=== PATIENT | male | born 1950 | race Caucasian/White ===

== ENCOUNTER 2016-12-16 08:59 | Emergency (ER) | payer MEDICARE, MEDICAID ==
[2016-12-16] MEDS ORDERED: BUMETANIDE1 MG PO (09:20)
[2016-12-16] MEDS ORDERED: COUMADIN1 MG PO (09:21)
[2016-12-16] MEDS ORDERED: PROPRANOLOL PO (09:22)
[2016-12-16] MEDS ORDERED: SPIRONOLACTONE25 MG PO (09:22)
[2016-12-16 10:24] LABS: HEMATOCRIT 25.4 % (39.0-50.0); HEMOGLOBIN 8.1 g/dl (14.0-18.0); IMMATURE GRANULOCYTES 0.8 % (0.0-1.0); MEAN CELL VOLUME 79.6 fL CALC (80.0-100.0); MEAN CORPUSCULAR HGB 25.4 pG CALC (26.0-32.0); MEAN CORPUSCULAR HGB CONC 31.9 g/L CALC (32.0-36.0); NEUT# 6.4 thou/uL (1.82-7.42); RED BLOOD COUNT 3.19 mill/uL (4.70-6.10); RED CELL DISTRI WIDTH 22.2 % (11.5-15.5)
[2016-12-16 10:30] LABS: INTERNATIONAL NORMALIZED RATIO 1.7 RATIO (0.7-1.3); PROTHROMBIN TIME 18.7 SECONDS (9.0-12.5)
[2016-12-16 10:35] LABS: CALCIUM 9.7 mg/dL (8.4-10.2); CREATININE 1.6 mg/dL (0.7-1.3); POTASSIUM 4.8 mmol/l (3.5-5.1)
[2016-12-16 13:31] VITALS: BP 136/65
== END 2016-12-16 13:31 | disposition short-term general hospital (02) ==
LOC: ED 08:59
PROVIDERS: Family Medicine
DX: R10.9 Unspecified abdominal pain (principal); R18.8 Other ascites; K86.1 Other chronic pancreatitis; K74.60 Unspecified cirrhosis of liver; B19.20 Unspecified viral hepatitis C without hepatic coma; I10 Essential (primary) hypertension; R53.1 Weakness

== ENCOUNTER 2016-12-25 16:38 | Inpatient (IN) | payer MEDICARE, MEDICAID ==
[~2016-12-25] VITALS: Ht 180.3 cm; Wt 62.6 kg
[~2016-12-25 16:38] MED LIST: BUMETANIDE2 MG PO; COUMADIN1 MG PO; PROPRANOLOL PO; SPIRONOLACTONE25 MG PO
--- NOTE | 2016-12-25 17:10 | NUR ---
ARRIVED ON UNIT DIRECT ADMIT FROM DR MARIN'S OFFICE, ALERT AND ORIENTED X 3, NO C/O PAIN AT THIS TIME, COLOR PALE AND ABD DISTENDED. SETTELED IN BED AND ORIENTED TO ROOM AND CALL DC. ATTEMPTS BY RN TO PLACE IV CATHETER UNSUCCESSFUL, CALENDER ROLL OPERATOR UNSUCCESSFUL IN OBTAINING BLOOD AFTER 2 ATTEMPTS ALSO, ARTERIAL BLOOD OBTAINED BY RESP. THERAPIST. TEST ENGINEERING MANAGER WILFRED CONTACTED AND ALSO MADE FUTILE ATTEMPTS IN TRYING TO PLACE IV CATHETER. CONDITION RELAYED TO HS NURSE AND WILL CONTINUE TO MONITOR.
[2016-12-25 17:16] VITALS: BP 106/57
[2016-12-25 19:00] VITALS: BP 104/55
[2016-12-25 19:01] LABS: HEMATOCRIT 29.3 % (39.0-50.0); HEMOGLOBIN 9.3 g/dl (14.0-18.0); IMMATURE GRANULOCYTES 0.4 % (0.0-1.0); MEAN CELL VOLUME 80.9 fL CALC (80.0-100.0); MEAN CORPUSCULAR HGB 25.7 pG CALC (26.0-32.0); MEAN CORPUSCULAR HGB CONC 31.7 g/L CALC (32.0-36.0); NEUT# 6.12 thou/uL (1.82-7.42); RED BLOOD COUNT 3.62 mill/uL (4.70-6.10); RED CELL DISTRI WIDTH 23.3 % (11.5-15.5)
[2016-12-25 19:12] LABS: ALBUMIN 2.8 g/dL (3.2-5.0); BILIRUBIN, TOTAL 2.6 mg/dL (0.0-1.4); CALCIUM 9.1 mg/dL (8.4-10.2); CREATININE 2.5 mg/dL (0.7-1.3); POTASSIUM 4.8 mmol/l (3.5-5.1); TOTAL PROTEIN 7.1 g/dL (6.3-8.2)
--- NOTE | 2016-12-25 19:48 | NUR ---
RECIEVED CALL FROM SARIKA IN THE LAB WITH CRITICAL [id number], CREAT-2.5, HGB IS 9.3.DR. MARIN CALLED WITH RESULTS. ORDERS RECIEVED-HOLD BLOOD TRANSFUSION TONIGHT. IVF ORDRED-NS @100CC/HR. WILL CONT TO MONITOR.
--- NOTE | 2016-12-25 20:00 | NUR ---
PATIENT RESTING IN BED AWAKE ALERT AND ORIENTEDX3. PATIENT IS PALE WITH SLIGHTLY YELLOW SCLERA. ABD IS DISTENDED BUT SOFT TO TOUCH. PATIENT STATES THAT HE HAS BM THIS AFTERNOON. STATES THAT HE RECENTLY HAD PARACENTESIS AT [facility]-HISTORY OF CIRRHOSIS AND ASCITES. IV SITE STARTED BY DOT [facility] DIRECTOR OCCUPATIONAL THERAPIST-#22 GAUGE TO RIGHT AC-IVF NS HUNG AND INFUSING AT 100CC/HR. O2 VIA NASAL CANNULA IN PLACE AT 3LPM. DOES NOT USE O2 AT HOME. INSTRUCTED ON USE OF NURSE CALL LIGHT SYSTEM AND TV REMOTE. SAFETY PRECAUTIONS REINFORCED WITH PATIENT. NO BLOOD TRANFUSION TONIGHT. CALL LIGHT IN REACH. WILL CONT TO MONITOR.
[2016-12-25 20:15] LABS: URINE BILIRUBIN - DIPSTICK NEGATIVE (NEGATIVE); URINE BLOOD DIPSTICK NEGATIVE (NEGATIVE); URINE COLOR YELLOW; URINE GLUCOSE - DIPSTICK NEGATIVE (NEGATIVE); URINE KETONE NEGATIVE (NEGATIVE); URINE LEUK ESTERASE NEGATIVE (NEGATIVE); URINE NITRITE - DIPSTICK NEGATIVE (Negative); URINE PH 5.5 (4.5-8.0); URINE PROTEIN - DIPSTICK NEGATIVE (NEG-TRACE); URINE SPECIFIC GRAVITY 1.015; URINE UROBILINOGEN - DIPSTICK 0.2 E.U./dL (0.2)
[2016-12-25 20:18] LABS: URINE CLARITY CLEAR
[2016-12-25 20:35] LABS: INTERNATIONAL NORMALIZED RATIO 1.5 RATIO (0.7-1.3)
[2016-12-26] VITALS (14 sets, daily range): BP systolic 95–125; BP diastolic 55–78
--- NOTE | 2016-12-26 00:43 | NUR ---
PATIENT RESTING IN BED AND APPEARS SLEEPING WITH O2 VIA NASAL CANNULA IN PLACE AND EYES CLOSED. IVF PATENT AND INFUSING VIA RIGHT AC SITE-SITE APPEARS HEALTHY AT THIS TIME. CALL LIGHT IN REACH. WILL CONT TO MONITOR.
--- NOTE | 2016-12-26 01:32 | NUR ---
PATIENT C/O RIGHT SIDED ABD PAIN-8/10 ON PAIN SCALE. MEDICATED WITH DILAUDID 1MG IVP ORDERED FOR PAIN. CALL LIGHT IN REACH. WILL CONT TO MONITOR.
[2016-12-26 06:05] LABS: HEMATOCRIT 22.9 % (39.0-50.0); HEMOGLOBIN 7.2 g/dl (14.0-18.0); IMMATURE GRANULOCYTES 0.7 % (0.0-1.0); MEAN CELL VOLUME 82.1 fL CALC (80.0-100.0); MEAN CORPUSCULAR HGB 25.8 pG CALC (26.0-32.0); MEAN CORPUSCULAR HGB CONC 31.4 g/L CALC (32.0-36.0); NEUT# 7.38 thou/uL (1.82-7.42); RED BLOOD COUNT 2.79 mill/uL (4.70-6.10)
[2016-12-26 06:23] LABS: ALBUMIN 2.8 g/dL (3.2-5.0); BILIRUBIN, TOTAL 3.3 mg/dL (0.0-1.4); CREATININE 2.3 mg/dL (0.7-1.3); POTASSIUM 4.8 mmol/l (3.5-5.1); TOTAL PROTEIN 6.9 g/dL (6.3-8.2)
--- NOTE | 2016-12-26 07:57 | NUR ---
ASSESSMENT IS COMPLETED: PT IS SITTING ON THE SIDE OF THE BED WITH NO DISTRESS NOTED. IV SITE IS FREE FROM REDNESS OR EDEMA. ABD IS DISTENDED. CONTINUE TO OSBERVE AND MONITOR.
--- NOTE | 2016-12-26 10:17 | NUR ---
PT RECEIVING 1ST UNIT OF BLOOD. INSTRUCTING PT RE: S/S TEMP, RASH, BP CHANGES, FEELING DIFFERENT . INSTRUCTIONS BEING GIVEN BY GILL MCKEON.
[2016-12-26] MEDS ORDERED: DICYCLOMINE HCL20 MG PO (11:30)
--- NOTE | 2016-12-26 11:31 | NUR ---
Visited pt rm for admission med rec. Talked to pt's daughter, caregiver, as pt did not recall his medications. Daughter gave me the names of pt's meds but was not sure of dose. Talked to Arya, pt's nurse, Arya showed a bag of pt's meds. Updated home med info accordingly. Of note, pt stated he has been taking 1/2 tab of ibuprofen 800mg every night for the last 5-7 days for abdominal pain. Pt stated no drug allergies nor food allergies. Pt did not have any other concerns or questions.
[2016-12-26] MEDS ORDERED: TUMS500 MG PO (11:37)
[2016-12-26] MEDS ORDERED: MOTRIN800 MG PO (11:44)
--- NOTE | 2016-12-26 12:00 | NUR ---
PT IS RELAXING IN BED WITH NO DISTRESS NOTED. IV SITE IS FREE FROM REDNESS OR EDEMA. CONTINUE TO OBSERVE AND MONITOR.
--- NOTE | 2016-12-26 13:37 | NUR ---
1ST UNIT COMPLETED AT 1305, THEN 2ND UNIT STARTED AT 1337 PT HAS AMBUALTED TO THE BATHROOM WITH FAMILY IN THE ROOM. IV SITE IS FREE FROM REDNESS OR EDEMA.
--- NOTE | 2016-12-26 16:00 | NUR ---
PT IS TOLERATING BLOOD TRANSFUSIONS WITH NO DISTRESS NOTED. IV SITE IS FREE FROM REDNESS OR EDEMA.
--- NOTE | 2016-12-26 17:19 | NUR ---
PT RECEIVEING 3RD UNIT OF BLOOD, TRANSFUISN. 2ND UNIT IS COMPLETED/ IV SITE IS FREE FROM REDNESS OR EDEMA. BLOOD TUBING HAS BEEN CHANGED PER PROTOCOL. CONTINUE TO OSBERVE AND MONITOR.
--- NOTE | 2016-12-26 18:29 | NUR ---
PT WAS GIVEN A SHOT FOR PAIN, TRIED TO EAT PEACHES AND BEGAN TO VOMIT.
--- NOTE | 2016-12-26 19:30 | NUR ---
PATIENT RESTING IN BED AT THIS TIME. 3RD UNIT OF PRBC'S INFUSING VIA RIGHT AC SITE. SITE APPEARS HEALTHY AT THIS TIME. REINFORCED TEACHING REGUARDING POSSIBLE ADVERSE REACTIONS. VERBALIZES UNDERSTANDING OF THE STATES. PATIENT DIDN'T EAT HIS DINNER -C/O NAUSEA. WILL CALL MD FOR ORDERS. ABD REMAINS DISTENDED, STATES THAT HE DID HAVE BM TODAY. SAFETY PRECAUTIONS REINFORCED. CALL LIGHT IN REACH. WILL CONT TO MONITOR.
--- NOTE | 2016-12-26 21:15 | NUR ---
3RD UNIT OF PRBC'S COMPLETED WITHOUT ANY ADVERSE REACTIONS. IVF NS INFUSING AT 100CC/HR ORDERED. CALL LIGHT IN REACH. WILL CONT TO MONITOR.
[2016-12-27 00:05] VITALS: BP 120/72
[2016-12-27 05:27] VITALS: BP 105/65
--- NOTE | 2016-12-27 06:07 | NUR ---
RESTING IN BED AT THIS TIME WITH NO COMPLAINTS AT THIS TIME. CALL LIGHT IN REACH. WILL CONT TO MONITOR
[2016-12-27 06:38] LABS: HEMATOCRIT 33.8 % (39.0-50.0); HEMOGLOBIN 10.9 g/dl (14.0-18.0); IMMATURE GRANULOCYTES 0.9 % (0.0-1.0); MEAN CELL VOLUME 83.7 fL CALC (80.0-100.0); MEAN CORPUSCULAR HGB CONC 32.2 g/L CALC (32.0-36.0); NEUT# 8.12 thou/uL (1.82-7.42); RED BLOOD COUNT 4.04 mill/uL (4.70-6.10); RED CELL DISTRI WIDTH 20.8 % (11.5-15.5)
[2016-12-27 06:47] LABS: ALBUMIN 2.8 g/dL (3.2-5.0); BILIRUBIN, TOTAL 8.8 mg/dL (0.0-1.4); CALCIUM 8.9 mg/dL (8.4-10.2); CREATININE 1.9 mg/dL (0.7-1.3); POTASSIUM 4.6 mmol/l (3.5-5.1)
[2016-12-27 08:10] VITALS: BP 107/63
--- NOTE | 2016-12-27 08:10 | NUR ---
ASSESSMENT IS COMPLETED: IV SITE IS FREE FROM REDNESS OR EDEMA. NO DISTRESS NOTED. ABD IS DISTENDED,. CONTINUE TO OBSERVE AND MONITOR.
--- NOTE | 2016-12-27 09:05 | NUR ---
IN TO VISIT WITH PT AND IS WANTING TO HAVE A PARACENTESIS PERFORMED. PT IS IN AGREEMENT. CONTINUE TO OSBERVE AND MONITOR. ALSO INFORMED STAFF "IF IV STOPS WORKING NO WORRIES, PT WILL HAVE TO DRINK MORE FLUIDS. "
--- NOTE | 2016-12-27 12:00 | NUR ---
PT IS RESTING IN BED WITH NO DISTRESS NOTED. IV SITE IS FREE FROM REDNESS OR EDEMA. CONTINUE TO OSBERVE AND MONITOR.
[2016-12-27 14:53] VITALS: BP 90/57
[2016-12-27 18:57] VITALS: BP 106/62
--- NOTE | 2016-12-27 20:00 | NUR ---
PT SITTING UP IN BED WATCHING TV. PT IS ALERT AND ORIENTED X3. PERRLA. LUNGS ARE CLEAR. RESP ARE EVEN AND UNLABORED. HR REGULAR. PULSES PALPABLE THROUGHOUT. NO EDEMA NOTED. BS ACTIVE. ABD FIRM AND DISTRENDED. #22 RAC. NS @100CC/HR INFUSING. NO REDNESS OR EDEMA NOTED AT SITE. WILL CONTINUE TO MONITOR/
--- NOTE | 2016-12-28 00:28 | NUR ---
PT RESTING IN BED WITH EYES CLOSED. RESP ARE EVEN AND UNLABORED. NO CHANGE IN PT STATUS. WILL CONTINUE TO MONITOR
--- NOTE | 2016-12-28 04:08 | NUR ---
PT RESTING IN BED WITH EYES CLOSED. AROUSES TO VERBAL STIMULI. RESP ARE EVEN AND UNLABORED. NO CHANGE IN PT STATUS. WILL CONTINUE TO MONITOR
[2016-12-28 05:16] VITALS: BP 108/62
[2016-12-28 05:51] LABS: HEMATOCRIT 30.7 % (39.0-50.0); HEMOGLOBIN 10.1 g/dl (14.0-18.0); IMMATURE GRANULOCYTES 0.8 % (0.0-1.0); MEAN CELL VOLUME 83.7 fL CALC (80.0-100.0); MEAN CORPUSCULAR HGB 27.5 pG CALC (26.0-32.0); MEAN CORPUSCULAR HGB CONC 32.9 g/L CALC (32.0-36.0); NEUT# 7.21 thou/uL (1.82-7.42); RED BLOOD COUNT 3.67 mill/uL (4.70-6.10); RED CELL DISTRI WIDTH 21.1 % (11.5-15.5)
[2016-12-28 06:14] LABS: ALBUMIN 2.6 g/dL (3.2-5.0); BILIRUBIN, TOTAL 4.7 mg/dL (0.0-1.4); CREATININE 1.8 mg/dL (0.7-1.3); POTASSIUM 4.6 mmol/l (3.5-5.1); TOTAL PROTEIN 6.7 g/dL (6.3-8.2)
--- NOTE | 2016-12-28 06:26 | NUR ---
DR MARIN NOTIFIED OF CRITICAL BUN 81. ALSO NOTIFIED ABOUT 7LB WEIGHT GAIN. ORDERS PLACED IN COMPUTER.
--- NOTE | 2016-12-28 07:00 | NUR ---
RECEIVED BEDSIDE REPORT FROM HOSSEIN MCKEON. RESTING IN BED WITH EYES CLOSED, AWAKENS EASILY. RESPS EVEN AND UNLABORED ON ROOM AIR. #22 RAC INFUSING WITHOUT DIFFICULTY, SITE APPEARS HEALTHY. VOICES NO NEEDS AT THIS TIME. PLAN OF CARE DISCUSSED. SAFETY PRECAUTIONS REINFORCED. BED IN LOWEST POSITION WITH WHEELS LOCKED. CALL LIGHT WITHIN REACH. WILL CONTINUE TO MONITOR.
[2016-12-28 07:08] LABS: INTERNATIONAL NORMALIZED RATIO 1.5 RATIO (0.7-1.3); PROTHROMBIN TIME 17.3 SECONDS (9.0-12.5)
[2016-12-28 08:23] VITALS: BP 119/69
--- NOTE | 2016-12-28 08:50 | NUR ---
TO ULTRASOUND IN STABLE CONDITION VIA WHEELCHAIR ACCOMPANIED BY VOLUNTEER.
--- NOTE | 2016-12-28 09:10 | NUR ---
FROM ULTRASOUND VIA WHEELCHAIR ACCOMPANIED BY VOLUNTEER. ASSISTED TO BATHROOM, MODERATE AMT OF SOFT BROWN STOOL INCONTINENCE. NATANAEL CARE PROVIDED.
--- NOTE | 2016-12-28 09:45 | NUR ---
TO ULTRASOUND IN STABLE CONDITION VIA WHEELCHAIR ACCOMPANIED BY VOLUNTEER.
--- NOTE | 2016-12-28 10:40 | NUR ---
FROM ULTRASOUND VIA WHEELCHAIR. DRESSING TO LEFT SIDE CDI. CALL LIGHT WITHIN REACH.
--- NOTE | 2016-12-28 12:30 | NUR ---
DR MARIN IN WITH PT, NEW ORDERS RECEIVED.
[2016-12-28 14:00] VITALS: BP 98/57
[2016-12-28 15:48] VITALS: BP 96/51
--- NOTE | 2016-12-28 16:00 | NUR ---
RESTING IN BED WITH EYES CLOSED. RESPS EVEN AND UNLABORED ON ROOM AIR. VOICES NO NEEDS AT THIS TIME. PO FLUIDS OFFERED. CALL LIGHT WITHIN REACH. WILL CONTINUE TO MONITOR.
--- NOTE | 2016-12-28 16:20 | NUR ---
Visited pt room for daily rounding. Pt stated that he is feeling better today and looking forward to going home tomorrow. Pt reported that he does not have any questions or concerns about hospital or home medications at this time. Upon reviwing home med list pt reported that he no longer takes the ibuprofen at all.
[2016-12-28 19:00] VITALS: BP 93/60
--- NOTE | 2016-12-28 21:10 | NUR ---
PT APPEARS TO BE SLEEPING IN SUPINE POSITION;WOKE PT TO COMPLETE ASSESSMENT;PT VOICES NO COMPLAINTS OR CONCERNS AT THIS TIME;#20G TO RAC;BS ACTIVE WITH DISTENDED/FIRM ABDOMEN;RESPIRATIONS EVEN AND UNLABORED ON RA,PRN O2 @ BEDSIDE HUM.;SAFETY PRECAUTIONS REINFORCED;PT EDUCATED TO CALL FOR ASSISTANCE IF NEEDED;CALL LIGHT IN REACH;WILL CONTINUE TO MONITOR
--- NOTE | 2016-12-29 01:00 | NUR ---
PT APPEARS TO BE SLEEPING IN SUPINE POSITION;RESPIRATIONS EVEN AND UNLABORED ON RA,HUM. O2 @ BEDSIDE;NO S/S OF DISTRESS NOTED;URINAL AT BEDSIDE;CALL LIGHT WITHIN REACH;WILL CONTINUE TO MONITOR
[2016-12-29 04:46] VITALS: BP 97/56
--- NOTE | 2016-12-29 05:00 | NUR ---
PT RESTING IN BED WIDE AWAKE,STATES "IM TIRED OF SLEEPING";RESPIRATIONS EVEN AND UNLABORED ON RA;PT VOICES NO COMPLAINTS OF PAIN OR NEEDS AT THIS TIME;FRESH COFFEE PROVIDED PER REQUEST;CALL LIGHT WITHIN REACH;WILL CONTINUE TO MONITOR
--- NOTE | 2016-12-29 07:00 | NUR ---
RECEIVED BEDSIDE REPORT FROM NATHAN DE LA CRUZ. RESTING IN BED WITH EYES CLOSED, AWAKENS EASILY. RESPS EVEN AND UNLABORED ON ROOM AIR. DENIES PAIN OR DISCOMFORT. PLAN OF CARE DISCUSSED. SAFETY PRECAUTIONS REINFORCED. BED IN LOWEST POSITION WITH WHEELS LOCKED. CALL LIGHT WITHIN REACH. ENCOURAGED PT TO CALL FOR ANY NEEDS.
[2016-12-29 07:40] VITALS: BP 106/64
--- NOTE | 2016-12-29 08:45 | NUR ---
DR MARIN IN WITH PT, NEW ORDERS RECEIVED.
[2016-12-29 09:40] LABS: HEMATOCRIT 32.5 % (39.0-50.0); HEMOGLOBIN 10.4 g/dl (14.0-18.0); IMMATURE GRANULOCYTES 0.7 % (0.0-1.0); MEAN CELL VOLUME 86.7 fL CALC (80.0-100.0); MEAN CORPUSCULAR HGB 27.7 pG CALC (26.0-32.0); NEUT# 6.67 thou/uL (1.82-7.42); RED BLOOD COUNT 3.75 mill/uL (4.70-6.10); RED CELL DISTRI WIDTH 21.9 % (11.5-15.5)
[2016-12-29 09:57] LABS: CALCIUM 8.9 mg/dL (8.4-10.2); CREATININE 1.7 mg/dL (0.7-1.3); POTASSIUM 4.2 mmol/l (3.5-5.1)
--- NOTE | 2016-12-29 11:10 | NUR ---
PHONE CALL FROM DR MARIN, NEW ORDERS RECEIVED.
[2016-12-29 14:05] VITALS: BP 107/70
--- NOTE | 2016-12-29 15:21 | NUR ---
Discharge instructions given. Patient verbalizes understanding of same. Discharged in stable condition via Wheelchair to Home with family. All belongings sent with pt.
== END 2016-12-29 15:16 | disposition home or self-care (01) | DRG 434 ==
LOC: MS2 16:38
PROVIDERS: ADMIT Internal Medicine Geriatric Medicine; ATTEND Internal Medicine Geriatric Medicine
PROC: 30233N1 Transfusion of Nonautologous Red Blood Cells into Peripheral Vein, Percutaneous Approach (ICD-10-PCS; principal; 2016-12-26)
PROC: 30233N1 Transfusion of Nonautologous Red Blood Cells into Peripheral Vein, Percutaneous Approach (ICD-10-PCS; 2016-12-26)
PROC: 30233N1 Transfusion of Nonautologous Red Blood Cells into Peripheral Vein, Percutaneous Approach (ICD-10-PCS; 2016-12-26)
PROC: 0W9G3ZX Drainage of Peritoneal Cavity, Percutaneous Approach, Diagnostic (ICD-10-PCS; 2016-12-28)
DX: K70.31 Alcoholic cirrhosis of liver with ascites (principal); J44.9 Chronic obstructive pulmonary disease, unspecified; D64.9 Anemia, unspecified; R62.7 Adult failure to thrive; B19.20 Unspecified viral hepatitis C without hepatic coma; K21.9 Gastro-esophageal reflux disease without esophagitis; K29.70 Gastritis, unspecified, without bleeding; K27.9 Peptic ulcer, site unspecified, unspecified as acute or chronic, without hemorrhage or perforation
CPT/HCPCS: P9016

== ENCOUNTER 2017-01-08 09:30 | Inpatient (IN) | payer MEDICARE, MEDICAID ==
[2017-01-08] VITALS (7 sets, daily range): BP systolic 84–120; BP diastolic 49–63
[~2017-01-08] VITALS: Ht 180.3 cm; Wt 64.0 kg
[~2017-01-08 09:30] MED LIST changes: +DICYCLOMINE HCL20 MG PO; +MOTRIN800 MG PO; +TUMS500 MG PO
--- NOTE | 2017-01-08 09:40 | NUR ---
DIRECT ADMIT VIA WHEELCHAIR ACCOMPANIED BY DAUGHTER. AMBULATED TO BED WITH UNSTEADY GAIT. RESPS EVEN AND UNLABORED ON ROOM AIR. ORIENTED TO ROOM AND CALL SYSTEM. SAFETY PRECAUTIONS REINFORCED. BED IN LOWEST POSITION WITH WHEELS LOCKED. CALL LIGHT WITHIN REACH. ENCOURAGED PT TO CALL FOR ANY NEEDS.
[2017-01-08 10:48] LABS: HEMATOCRIT 23.4 % (39.0-50.0); HEMOGLOBIN 7.6 g/dl (14.0-18.0); IMMATURE GRANULOCYTES 1.1 % (0.0-1.0); MEAN CELL VOLUME 91.1 fL CALC (80.0-100.0); MEAN CORPUSCULAR HGB 29.6 pG CALC (26.0-32.0); MEAN CORPUSCULAR HGB CONC 32.5 g/L CALC (32.0-36.0); NEUT# 9.53 thou/uL (1.82-7.42); RED BLOOD COUNT 2.57 mill/uL (4.70-6.10); RED CELL DISTRI WIDTH 25.5 % (11.5-15.5)
[2017-01-08 11:11] LABS: ACT PARTIAL THROMBO TIME 29.4 SECONDS (20.0-32.5); INTERNATIONAL NORMALIZED RATIO 1.2 RATIO (0.7-1.3); PROTHROMBIN TIME 13.4 SECONDS (9.0-12.5)
[2017-01-08 11:12] LABS: CALCIUM 9.2 mg/dL (8.4-10.2); CREATININE 3.4 mg/dL (0.7-1.3)
[2017-01-08 11:23] LABS: POTASSIUM 5.4 mmol/l (3.5-5.1)
--- NOTE | 2017-01-08 11:30 | NUR ---
PHONE CALL FROM DR MARIN, NEW ORDERS RECEIVED.
--- NOTE | 2017-01-08 11:40 | NUR ---
MEDICATED WITH ZOFRAN 4MG IVP FOR C/O NAUSEA.
--- NOTE | 2017-01-08 12:30 | NUR ---
TO RADIOLOGY IN STABLE CONDITION VIA WHEELCHAIR ACCOMPANIED BY VOLUNTEER.
--- NOTE | 2017-01-08 13:00 | NUR ---
RETURNED FROM RADIOLOGY VIA WHEELCHAIR. AMBULATED TO BED WITH UNSTEADY GAIT. SINGLE LUMEN PICC TO [facility], SITE APPEARS HEALTHY. PO FLUIDS OFFERED. CALL LIGHT WITHIN REACH. ENCOURAGED PT TO CALL FOR ANY NEEDS.
[2017-01-08] MEDS ORDERED: MULTIVITAMI1 PO (15:59)
[2017-01-08] MEDS ORDERED: NORCO1 TA1 PO (16:00)
[2017-01-08] MEDS ORDERED: BUMETANIDE2 MG PO (16:02)
[2017-01-08] MEDS ORDERED: ONDANSETRON4 MG PO (16:02)
--- NOTE | 2017-01-08 18:00 | NUR ---
DR MARIN IN WITH PT, NEW ORDERS RECEIVED.
--- NOTE | 2017-01-08 19:00 | NUR ---
REPORT RECIEVED FROM LINDA DEWITT. PT ASLEEP ON ENTRY. NO ACUTE SIGNS OF DISTRESS NOTED. RESP EVEN AND UNLABORED. PICC PATENT. SAFETY PRECAUTIONS IN PLACE. CALL LIGHT WITHIN REACH. WILL CONTINUE TO MONITOR.
--- NOTE | 2017-01-08 23:07 | NUR ---
PT VOMITED MODERATED AMOUNT OF LIGHT BROWN EMESIS. PT STATES "HE DRANK HIS CHOCOLATE SHAKE, THIS IS NOT NEW" AND HAS RECIEVED ZOFRAN SINCE ADMISSION. ADMINISTERED ZOFRAN AND SCHEDULED PROTONIX BETWEEN UNITS OF BLOOD. WITH GOOD EFFECT, NO FURTHER EMESIS. WILL CONTINUE TO MONITOR.
[2017-01-09] VITALS (15 sets, daily range): BP systolic 91–148; BP diastolic 53–99
--- NOTE | 2017-01-09 00:50 | NUR ---
PT HAS SECOND UNIT OF BLOOD TRANSFUSING. PT TOLERATING BLOOD WELL. VITAL SIGNS CLOSELY MONITORED. NO COMPLAINTS OF PAIN FROM PT. PICC PATENT. WILL CONTINUE TO MONITOR. CALL LIGHT WITHIN REACH.
[2017-01-09 02:11] LABS: URINE BILIRUBIN - DIPSTICK NEGATIVE (NEGATIVE); URINE BLOOD DIPSTICK MODERATE (NEGATIVE); URINE COLOR YELLOW; URINE GLUCOSE - DIPSTICK NEGATIVE (NEGATIVE); URINE KETONE NEGATIVE (NEGATIVE); URINE LEUK ESTERASE NEGATIVE (NEGATIVE); URINE NITRITE - DIPSTICK NEGATIVE (Negative); URINE PH 5.5 (4.5-8.0); URINE PROTEIN - DIPSTICK NEGATIVE (NEG-TRACE); URINE UROBILINOGEN - DIPSTICK 0.2 E.U./dL (0.2)
[2017-01-09 02:12] LABS: URINE CLARITY CLEAR
[2017-01-09 02:22] LABS: URINE BACTERIA FEW hpf; URINE SQUAMOUS EPITHELIAL CELL FEW EPI/hpf (0-FEW)
--- NOTE | 2017-01-09 05:15 | NUR ---
PT ASSISTED TO BATHROOM. PT HAS NO COMPLAINT OF PAIN AT THIS TIME. PT DAILY WT IS 64.2KG. PT ASSISTED BACK TO BED. PICC PATENT. SAFETY PRECAUTIONS REINFORCED. WILL CONTINUE TO MONITOR.
[2017-01-09 06:28] LABS: HEMOGLOBIN 8.7 g/dl (14.0-18.0); IMMATURE GRANULOCYTES 1.2 % (0.0-1.0); MEAN CELL VOLUME 88.1 fL CALC (80.0-100.0); MEAN CORPUSCULAR HGB 29.5 pG CALC (26.0-32.0); MEAN CORPUSCULAR HGB CONC 33.5 g/L CALC (32.0-36.0); NEUT# 8.42 thou/uL (1.82-7.42); RED BLOOD COUNT 2.95 mill/uL (4.70-6.10); RED CELL DISTRI WIDTH 22.1 % (11.5-15.5)
[2017-01-09 06:47] LABS: ALBUMIN 2.5 g/dL (3.2-5.0); BILIRUBIN, TOTAL 5.9 mg/dL (0.0-1.4); CALCIUM 8.8 mg/dL (8.4-10.2); CREATININE 3.4 mg/dL (0.7-1.3); TOTAL PROTEIN 6.2 g/dL (6.3-8.2)
[2017-01-09 06:57] LABS: POTASSIUM 5.4 mmol/l (3.5-5.1)
--- NOTE | 2017-01-09 07:00 | NUR ---
CRITICAL LAB CALLED FOR ELEVATED BUN/CR. DR. MARIN AWARE OF LAB TRENDING DOWN. TREATMENT IN PLACE.
--- NOTE | 2017-01-09 07:55 | NUR ---
SHIFT CHANGE REPORT FROM CARLOS, PT SLEEPING BUT AROUSES TO VERBAL STIMULI, DISORIENTED AT THIS TIME, STATED BIRTHDAY BUT REPEATED BOD WHEN ASKED FEW TIMES WHAT TODAY'S DATE WAS. ORIENTED TO TIME AND DATE AND SET UP FOR MEAL. CALL DC IN REACH.
--- NOTE | 2017-01-09 12:02 | NUR ---
@ 0815 PT WAS ASSISTED TO BR AND ADVISED TO USE CALL DC WHEN FINISHED, PT DID NOT CALL BUT GOT OUT BY SELF AND PLUGGED IN IV CORD TO WALL THEN PROCEEDED TO GO BACK TO BR, SLOSED DOOR ON IV CORD AHICH BROKE OFF. HOUSE KEEPING STAFF DISCOVERED ACTION AND REPORTED, RN JUST N TIME TO PREVENT BLEEEDING FROM PICC LINE. PT IS CONFUSED, DR MARIN NOTIFIED AND WROTE ORDERS, AMMINIL LEVELS ELEVATED. BED ALARM PLACED AND CALL DC IN REACH.
--- NOTE | 2017-01-09 12:06 | NUR ---
PT ATTEMPTING TO GET OOB AT THIS TIME, PRBC JUST STARTED, PT ASSISTED TO RECLINER. STILL CONFUSED AND DISORIENTED, SET UP FOR MEAL. BODY ALARM PLACED, WILL CONTINUE TO MONITOR
--- NOTE | 2017-01-09 13:53 | NUR ---
DR MARIN NOTIFIED OF AMMONIA LEVEL, NO NEW ORDERS.
--- NOTE | 2017-01-09 15:36 | NUR ---
FIRST UNIT PRBC INFUSED WITHOUT ADVERSE REACTION. PT HAS BEEN RESTLESS ALL DAY BUT STATES HE HAS NOT PAIN, VOMITTING UNDIGESTED CHOCOLATE ENSURE AT THIS TIME. UNIT # 2 JUST STARTED, WILL CONTINUE TO MONITOR.
--- NOTE | 2017-01-09 18:03 | NUR ---
DR MARIN SPOKE WITH PT'S DAUGHTER AND HAVE DECIDED TO CHANGE CODE STATUS PER PTS WISHES.
--- NOTE | 2017-01-09 19:20 | NUR ---
REPORT RECIEVED FROM LINDA CERON. PT APPEARS TO BE SLEEPING WITH EYES CLOSED. NO ACUTE SIGNS OF DISTRESS NOTED. RESP EVEN AND UNLABORED. PICC PATENT. SAFETY PRECAUTIONS IN PLACE. CALL LIGHT WITHIN REACH. WILL CONTINUE TO MONITOR.
--- NOTE | 2017-01-09 19:47 | NUR ---
SPOKE TO DAUGHTER YAMEL WHO REPORTED PT MADE WISHES KNOWN TO HER THAT HE DOES NOT WANT TO BE RESUSSITATED IF HE SHOULD EVER BE IN THE SITUATION THAT REQUIRES IT, VERBAL CONSENT GIVEN VIA TELEPHONE FOR DNR.
--- NOTE | 2017-01-09 20:10 | NUR ---
BED ALARM WENT OFF. PT UP TO THE SIDE OF THE BED VOIDING AND DEFICATING. PT WAS ENCOURGED TO SIT ON BSC, WOULD NOT FOLLOW COMMANDS. PT LAYED BACK DOWN IN BED. WHEN ASKED QUESTIONS, WOULD NOT RESPOND. @2019 INQUIRED THE WORLD RENOWNED CHEF AND RESTAURANT OWNER TO CHECK ON PT REGUARDING LACK OF RESPONSE. RECCOMENDED TO CALL PHYSICAN.
--- NOTE | 2017-01-09 20:34 | NUR ---
DR MARIN CALLED IN REGUARD TO CHANGE IN PT CONDITON. NEW ORDERS RECIEVED.
--- NOTE | 2017-01-09 22:30 | NUR ---
PT APPEARS TO BE SLEEPING AT THIS TIME. PICC PATENT. CALL LIGHT WITHIN REACH.
--- NOTE | 2017-01-10 00:58 | NUR ---
PT IS RESTING WITH EYES CLOSED. NO CHANGES IN THIS TIME. BED ALARM ON. CALL LIGHT WITHIN REACH.
[2017-01-10 03:20] VITALS: BP 147/90
--- NOTE | 2017-01-10 04:31 | NUR ---
PT APPEARS TO BE SLEEPING AT THIS TIME. RESP EVEN AND UNLABORED. PICC PATENT. WILL CONTINUE TO MONITOR
--- NOTE | 2017-01-10 05:15 | NUR ---
BLOOD DRAW FROM PICC.PICC FLUSHED PER PROTOCOL.
[2017-01-10 05:59] LABS: HEMOGLOBIN 11.6 g/dl (14.0-18.0); IMMATURE GRANULOCYTES 1.4 % (0.0-1.0); MEAN CELL VOLUME 86.4 fL CALC (80.0-100.0); MEAN CORPUSCULAR HGB 30.4 pG CALC (26.0-32.0); MEAN CORPUSCULAR HGB CONC 35.2 g/L CALC (32.0-36.0); NEUT# 8.04 thou/uL (1.82-7.42); RED BLOOD COUNT 3.82 mill/uL (4.70-6.10); RED CELL DISTRI WIDTH 20.3 % (11.5-15.5)
[2017-01-10 06:18] LABS: ALBUMIN 2.6 g/dL (3.2-5.0); BILIRUBIN, TOTAL 9.9 mg/dL (0.0-1.4); CREATININE 3.3 mg/dL (0.7-1.3); POTASSIUM 4.7 mmol/l (3.5-5.1); TOTAL PROTEIN 6.5 g/dL (6.3-8.2)
--- NOTE | 2017-01-10 06:36 | NUR ---
SHLOMO, FROM LAB CALLED. BUN;119. CREATNINE; 3.3. DR. MARIN ALREADY AWARE LABS ARE TRENDING DOWN.
--- NOTE | 2017-01-10 07:34 | NUR ---
SHIFT CHANGE REPORT FROM JOHN, PT AWAKE, CONFUSED, DISORIENTED AND RESTLESS, ASSISTED TO BSC BY 3 STAFF MEMBERS, HAD BLADDER & BOWEL ELIMINATION AND ASSISTED BACK TO BED, RESTLESSNES SUBSIDES AT THIS TIME WILL CONTINUE TO MONITOR.
--- NOTE | 2017-01-10 09:59 | NUR ---
RESTING CALMLY AND COMFORTABLY AT THIS TIME, BODY ALARM IN PLACE, CALL DC IN REACH, DAUGHTER AT BEDSIDE.
--- NOTE | 2017-01-10 10:53 | NUR ---
PT HAS MUCH DIFFICULTY FOLLOWING COMMANDS, ASSISTED TO STRETCHER AND TRANSPORTED OFF UNIT FOR PROCEDURE AT THIS TIME.
--- NOTE | 2017-01-10 10:59 | NUR ---
JASMIN FROM RADIOLOGY JUST CALLED STATING UNABLE TO DO PROCEDURE DUE TO PT'S MENTATION AND ELEVATED AMMONIA LEVELS, PT RETURNED TO UNIT, DR MARIN NOTIFIED AND GAVE ORDERS.
[2017-01-10 12:06] VITALS: BP 158/88
--- NOTE | 2017-01-10 12:30 | NUR ---
RADIOLOGY NOTIFIED (JASMIN) OF NEW ORDERS AND REPORTED CONSENT MAY BE OBTAINED BY AUTHORISED FAMILY MEMBER. PT'S DAUGHTER & POA ARRIVED, INFORMED OF ORDERS AND PROTOCOL AND NOW WENT WITH PT OFF UNIT SIGN CONSENT FOR EXECUTION OF PROCEDURE.
[2017-01-10 15:30] VITALS: BP 152/83
--- NOTE | 2017-01-10 16:00 | NUR ---
PT RETURNED TO UNIT AND ASSISTED WITH TRANSFER TO BED, ABDOMEN MUCH LESS DISTENDED AND SOFT, DENIES PAIN, RESTLESNESS REDUCED, RESTING N BED WITH BODY ALARM IN PLACE AND CALL DC IN REACH.
--- NOTE | 2017-01-10 19:00 | NUR ---
BEDSIDE REPORT RECEIVED FROM LINDA CERON. PT ALERT WITH SOME CONFUSION. RESTING IN BED LEFT SIDE WITH COVERS OVER HEAD. DENIES PAIN, HOWEVER, GROANS WITH MOVEMENT. OFFERED TYLENOL AND PT STATED THAT HE WOULD LIKE SOMETHING FOR PAIN. RESPIRATIONS EVEN AND UNLABROED. IV FLUIDS INFUSING WITHOUT DIFFICUTLY TO FRANK PICC. PICC DRESSING CDI. SAFETY MEASURES IN PLACE INCLUDING BED ALARM. CALL LIGHT WITHIN REACH.
[2017-01-10 19:15] VITALS: BP 134/80
--- NOTE | 2017-01-11 00:22 | NUR ---
PT RESTING IN BED WITH EYES CLOSED ON LEFT SIDE. PT GROANS FREQUENTLY; DAY SHIFT ALSO REPORTED PERSISTENT MOANING. TYLENOL AND ATIVAN GIVEN WITH HS MEDS. DURING MED PASS PT NOTED TO HAVE STOOL ON HANDS AND CONFUSED. BED BATH GIVEN AT THIS TIME. PT REMAINS JAUNDICE AND ABDOMEN DISTENTED AND FIRM, HOWEVER, IMPROVED FROM BEFORE PARACENTESIS. BED ALARM REMAINS IN PLACE AND CLOSE MONITORING.
--- NOTE | 2017-01-11 04:17 | NUR ---
PT REMAINS CONFUSED. INCONTINENT OF BOWEL MOVEMENT AND FECES FOUND ON HANDS, PILLOW, AND SHEETS. BED BATH GIVEN. PICC LINE PATENT WITH GOOD BLOOD RETURN. IV FLUIDS INFUSING WITHOUT DIFFICUTLY. SAFETY MEASURES REMAIN IN PLACE INCLUDING BED ALARM. PT'S NEEDS ARE ANTICIPATED BY STAFF. CALL LIGHT WITHIN REACH.
[2017-01-11 04:20] VITALS: BP 137/82
[2017-01-11 06:16] LABS: HEMATOCRIT 32.9 % (39.0-50.0); HEMOGLOBIN 11.2 g/dl (14.0-18.0); IMMATURE GRANULOCYTES 0.8 % (0.0-1.0); MEAN CELL VOLUME 88.2 fL CALC (80.0-100.0); NEUT# 9.6 thou/uL (1.82-7.42); RED BLOOD COUNT 3.73 mill/uL (4.70-6.10)
[2017-01-11 06:36] LABS: ALBUMIN 2.6 g/dL (3.2-5.0); BILIRUBIN, TOTAL 9.8 mg/dL (0.0-1.4); CALCIUM 8.8 mg/dL (8.4-10.2); CREATININE 3.2 mg/dL (0.7-1.3); POTASSIUM 4.8 mmol/l (3.5-5.1); TOTAL PROTEIN 6.5 g/dL (6.3-8.2)
[2017-01-11 07:50] VITALS: BP 126/84
--- NOTE | 2017-01-11 12:30 | NUR ---
BLADDER SCAN ORDERED BY , PT.SCANNED @>999. WAS NOTIFIED AND A INDWELLING MANTILLA CATHETER WAS ORDERED. UNABLE TO INSERT CATHETER, 2X ATTEMPTS. NOTIFIED AND A CAUD'E CATHETER WAS ORDERED.
--- NOTE | 2017-01-11 13:30 | NUR ---
CAUD'E CATHETER INSERTED, NOT MUCH OUTPUT. NOTIFIED LA,SUPERINTENDENT ELECTRIC POWER AND MECCA ELLIS REGARDING LIMITED OUTPUT, RHONDA ORDERED IRRIGATION SALINE. CATHETER WAS IRRIGATED AND APPEARS PATENT. OUTPUT IS LIMITED TO A VERY SLOW TRICKLE. CATHETER IS ATTACHED TO A LEG STRAP, PT.TOLERATED PROCEDURE WELL. DAUGHTER IS NO LONGER AT BEDSIDE. BED ALARM IS ON AND CALL LIGHT IS AT SIDE
[2017-01-11 14:52] LABS: INTERNATIONAL NORMALIZED RATIO 1.3 RATIO (0.7-1.3)
[2017-01-11 15:19] VITALS: BP 138/82
--- NOTE | 2017-01-11 18:15 | NUR ---
PT.MEDICATED W/LACTULOSE FOR ELEVATED AMONIA LEVELS ORDERED. PT.HAS BEEN GETTING UP TO BEDSIDE COMMODE APPROX.Q20 MINUTES IN ATTEMPTS TO USE THE RESTROOM. SMALL SPOTTED DARK BM'S, MANTILLA CATHETER IS IN PLACE AND DRAINING ORANGE URINE MINIMALLY. BED ALARM IS ON PT.
--- NOTE | 2017-01-11 18:45 | NUR ---
CALLED INTO ROOM B Y PREVIOUS SHIFT NURSE BRENDEN MCKEON. PT CONFUSED. PT HAS BROKE PICC LINE AT TIP OF CATH. PT BLEEDING OUT OF PICC LINE. PICC LINE NOT SALVAGABLE. PICC CLAMPED TO PREVENT FURTHER BLEEDING. NOTIFIED DR GENTILE. ORDERS RECEIVED TO DC PICC. PICC LINE DC'D.PRESSURE APPLIED WITH GAUZE AND COVERED WITH AN OCCLUSIVE DRESSING. PRESSURE HELD FOR 2 MINUTES. NO BLEEDING NOTED ON DRESSING.
[2017-01-11 18:53] VITALS: BP 114/73
--- NOTE | 2017-01-11 19:30 | NUR ---
ALICE MCKEON STARTED #22 RIGHT HAND X [address] GENTILE NOTIFED. ORDERS OBTAINED FOR [facility] FLUIDS.
--- NOTE | 2017-01-11 20:00 | NUR ---
PT AGITATED AND UP AND DOWN TO BSC. SITTER IN ROOM
--- NOTE | 2017-01-11 20:00 | NUR ---
PT SITTING UP IN BED WATCHING TV. PT IS ALERT AND ORIENTED TO NAME. PERRLA. RESP ARE EVEN AND UNLABORED. LUNGS ARE CLEAR. HR REGULAR. PULSES PALPABLE THROUGHOUT. NO EDEMA NOTED. ABD FIRM AND DISTENDED. MANTILLA DRAINING BLOOD TINGED URINE. DRESSING TO FRANK FROM PREVIOUS PICC IS C/D/I. #22 RIGHT HAND. NO REDNESS OR EDEMA NOTED AT SITE. SITTER IN ROOM. WILL CONTINUE TO MONITOR
--- NOTE | 2017-01-11 21:30 | NUR ---
IVF STARTED AT [facility] PER MD ORDERS. PT CONTINUES TO SEEM AGITATED AND BE UP AND DOWN TO BSC. PT STATED HE WAS IN PAIN. PAIN MEDICATION GIVEN PER MD ORDERS. SITTER IN ROOM WILL CONTINUE TO MONITOR
--- NOTE | 2017-01-11 22:30 | NUR ---
PT RESTING IN BED WITH EYES CLOSED. RESP ARE EVEN AND UNLABORED. MANTILLA DRAINING BLOOD TINGED URINE. NO DISTRESS NOTED. SITTER IN ROOM WILL CONTINUE TO MONITOR
--- NOTE | 2017-01-12 00:13 | NUR ---
PT RESTING IN BED WITH EYES CLOSED. RESP ARE EVEN AND UNLABORED. SITTER IN ROOM. WILL CONTINUE TO MONITOR
--- NOTE | 2017-01-12 04:00 | NUR ---
PT RESTING IN BED WITH EYES CLOSED. RESP ARE EVEN AND UNLABORED. NO DISTRESS NOTED. MANTILLA DRAINING BLOOD TINGED URINE. 40 CC TOTAL OUTPUT IN 12 HOURS. MD AWARE OF THIS TREND. IVF INFUSING @[facility]. WILL CONTINUE TO MONITOR
[2017-01-12 04:39] VITALS: BP 98/67
[2017-01-12 06:13] LABS: HEMATOCRIT 32.5 % (39.0-50.0); HEMOGLOBIN 11.1 g/dl (14.0-18.0); IMMATURE GRANULOCYTES 1.1 % (0.0-1.0); MEAN CELL VOLUME 88.8 fL CALC (80.0-100.0); MEAN CORPUSCULAR HGB 30.3 pG CALC (26.0-32.0); MEAN CORPUSCULAR HGB CONC 34.2 g/L CALC (32.0-36.0); NEUT# 11.65 thou/uL (1.82-7.42); RED BLOOD COUNT 3.66 mill/uL (4.70-6.10); RED CELL DISTRI WIDTH 20.5 % (11.5-15.5)
[2017-01-12 06:28] LABS: ALBUMIN 2.5 g/dL (3.2-5.0); BILIRUBIN, TOTAL 9.9 mg/dL (0.0-1.4); CALCIUM 9.2 mg/dL (8.4-10.2); CREATININE 3.7 mg/dL (0.7-1.3); POTASSIUM 5.1 mmol/l (3.5-5.1); TOTAL PROTEIN 6.5 g/dL (6.3-8.2)
--- NOTE | 2017-01-12 06:34 | NUR ---
DR GENTILE NOTIFEIED OF CRITICAL LAB RESULT BUN AND ONLY 40CC OF URINE OUTPUT
[2017-01-12 08:40] VITALS: BP 114/74
--- NOTE | 2017-01-12 08:51 | NUR ---
PT.MEDICATED AND V/S ASSESSED. UNABLE TO GET PT.TO WAKE UP ENOUGH TO DRINK LACTULOSE. BREAKFAST TRAY IS AT BEDSIDE, WE WILL TRY AGAIN IN A WHILE TO ASSIST PT.TO DRINK LACTULOSE AND POSSIBLY EAT OR DRINK SOMETHING. PT.IS IN THE BED SLEEPING, APPEARS RESTFUL, NO S/S OF DISTRESS AT THIS TIME. DAUGHTER ARRIVED AND IS AT BEDSIDE. POC/LABS DISCUSSED W/DAUGHTER.
--- NOTE | 2017-01-12 11:25 | NUR ---
PT.CLEANED OF MODERATE SOFT BM, BARRIER CREAM ADMINISTERED FOR SLIGHT RIDNESS TO BUTTOCKS/GROIN AREA. PT.HAS A RED AREA TO LEFT HIP, HE ROLLS TO HIS LEFT SIDE WHEN SLEEPING. I HAVE PLACED A PILLOW ON THAT SIDE TO KEEP HIM OFF OF IT AND INSTRUCTED BRANCH SERVICES MANAGER'S TO REPOSITION AND ASSIST IN KEEPING HIM OFF OF THAT SIDE FOR ANY LENGTH OF TIME. IV FLUIDS RUNNING. DAUGHTER WAS ABLE TO ASSIST ME IN GETTING HIM TO DRINK HIS LACTULOSE AND "A COUPLE OF SIPS" OF ENSURE. WE ATTEMPTED MOUTH CARE, BUT PT.WILL NOT ALLOW. DAUGHTER LEFT AT BEDSIDE AND BED ALARM ON
--- NOTE | 2017-01-12 13:30 | NUR ---
PT.HAS BEEN TAKEN DOWN FOR PARACENTESIS AND NOW RETURNED TO FLOOR. PT.APPEARS TO HAVE TOLERATED PROCEDURE WELL, DAUGHTER IS AT HIS SIDE. PT.IS NOW SLEEPING. BED ALARM ON AND DAUGHTER AT SIDE.
--- NOTE | 2017-01-12 14:55 | NUR ---
PT.MEDICATED FOR PAIN. PT.WAS MOANING AND GROANING FOR FIRST TIME TODAY. APPEARED TO BE IN DISTRESS. DAUGHTER IS AT BEDSIDE.
[2017-01-12 15:07] VITALS: BP 105/64
--- NOTE | 2017-01-12 15:17 | NUR ---
PT.APPEARS TO BE MUCH MORE RESTFUL AT THIS TIME. DAUGHTER STATED THAT HE DOESN'T SEEM TO HAVE ANYMORE AGGITATION AFTER BEING MEDICATED FOR PAIN
[2017-01-12 16:00] VITALS: BP 94/56
[2017-01-12 18:30] VITALS: BP 96/66
--- NOTE | 2017-01-12 19:00 | NUR ---
PT RESTING IN BED WITH EYES CLOSED PT MOANING. PT EYES ARE OPEN. PT IS LETHARGIC. PERRLA. LUNGS ARE CLEAR. RESP ARE SHALLOW. HR REGULAR. NO EDEMA NOTED. PULSES PALPABLE THROUGHOUT. BS HYPOACTIVE. MANTILLA DRAINING JYOTI COLORED URINE. #22 RIGHT HAND. NS @80CC/HR. NO REDNESS OR EDEMA NOTED. WILL CONTINUE TO MONITOR
[2017-01-12 20:23] VITALS: BP 106/70
--- NOTE | 2017-01-12 22:00 | NUR ---
PT RESTING IN BED WITH EYES CLOSED. RESP ARE SHALLOW. MANTILLA DRAINING JYOTI COLORED URINE. WILL CONTINUE TO MONITOR
--- NOTE | 2017-01-13 | NUR ---
PT RESTING IN BED WITH EYES CLOSED. RESP ARE SHALLOW AND UNLABORED. NO DISTRESS NOTED. MANTILLA DRAINING JYOTI COLORED URINE. WILL CONTINUE TO MONITOR
--- NOTE | 2017-01-13 03:04 | NUR ---
PT SEEMS INCREASINGLY IN PAIN. PT IS MOANING ALOUD. ASKED PT IF HE WAS IN PAIN AND PT CONTINUED MOANING. MEDIATED FOR PAIN. 2ND BOTTLE OF ALBUMIN STARTED. WILL CONTINUE TO MONITOR
[2017-01-13 03:50] VITALS: BP 112/68
--- NOTE | 2017-01-13 04:00 | NUR ---
PT RESPIRATIONS ARE 4 AT THIS TIME. PT RESTING IN BED. RESPIRATIONS CONTINUE TO BE SHALLOW AND UNLABORED. OTHER VITAL SIGNS ARE STABLE AT THIS TIME. PT BATHED.
--- NOTE | 2017-01-13 04:29 | NUR ---
DAUGHTER YAMEL NOTIFIED OF CHANGE IN PT CONDITION. WILL CONTINUE TO MONITOR PT.
--- NOTE | 2017-01-13 05:14 | NUR ---
DAUGHTER IN ROOM. UPDATE GIVEN ON PT STATUS. DAUGHTER VERBALIZED UNDERSTANDING WILL CONTINUE TO MONITOR
--- NOTE | 2017-01-13 08:05 | NUR ---
PT RESTING QUIETLY IN BED. RESP LABORED PT NOT GASPING. DAUGHTER AT BEDSIDE. PT RESPONSES WITH EYES ONLY WHEN YOU CALL HIS NAME. PT MOVES ARMS INDEPENDENTLY. WILL CONTINUE TO MONITOR PT'S CONDITION.
[2017-01-13 09:03] VITALS: BP 108/72
--- NOTE | 2017-01-13 12:50 | NUR ---
DR. COFFEY IN TO SPEAK WITH DAUGHTER REGARDING HOSPICE CARE. PT CONTINUES WITH SHALLOW BREATHING, ANSWERS TO NAME. NO CHANGE IN ASSESSMENT.
--- NOTE | 2017-01-13 12:51 | NUR ---
[facility] NOTIFIED OF REFERRAL, STATED A [employer] WILL BE HERE ABOUT 2PM, MESSAGE RELATED TO DAUGHTER.
--- NOTE | 2017-01-13 13:57 | NUR ---
HOSPICE NURSE IN TO MEET WITH FAMILY
[2017-01-13 16:38] VITALS: BP 111/70
--- NOTE | 2017-01-13 16:46 | NUR ---
PT MOAINING/ATTEMPTING TO GET OOB; UNITELLIGBLE SPEECH; NODS HEAD WHEN ASKED IF HE IS HAVING PAIN; MEDICATED ORDERED; VSS; CALL DC WITHIN REACH; BED ALARM IN PLACE FOR SAFETY; WILL CONTINUE TO MONITOR.
--- NOTE | 2017-01-13 17:26 | NUR ---
Discharge instructions given. Patient verbalizes understanding of same. Discharged in fair condition via [facility] All belongings sent with pt. MANTILLA LEFT IN FOR COMFORT MEASURES
== END 2017-01-13 17:20 | disposition hospice, inpatient (51) | DRG 432 ==
LOC: MS2 09:30
PROVIDERS: ADMIT Internal Medicine Geriatric Medicine; ATTEND Internal Medicine
PROC: 02HV33Z Insertion of Infusion Device into Superior Vena Cava, Percutaneous Approach (ICD-10-PCS; principal; 2017-01-08)
PROC: B518ZZA Fluoroscopy of Superior Vena Cava, Guidance (ICD-10-PCS; 2017-01-08)
PROC: 30243N1 Transfusion of Nonautologous Red Blood Cells into Central Vein, Percutaneous Approach (ICD-10-PCS; 2017-01-08)
PROC: 30243N1 Transfusion of Nonautologous Red Blood Cells into Central Vein, Percutaneous Approach (ICD-10-PCS; 2017-01-08)
PROC: 30243N1 Transfusion of Nonautologous Red Blood Cells into Central Vein, Percutaneous Approach (ICD-10-PCS; 2017-01-09)
PROC: 30243N1 Transfusion of Nonautologous Red Blood Cells into Central Vein, Percutaneous Approach (ICD-10-PCS; 2017-01-09)
PROC: 0W9G3ZZ Drainage of Peritoneal Cavity, Percutaneous Approach (ICD-10-PCS; 2017-01-10)
PROC: 0T9B70Z Drainage of Bladder with Drainage Device, Via Natural or Artificial Opening (ICD-10-PCS; 2017-01-11)
PROC: 0W9G3ZZ Drainage of Peritoneal Cavity, Percutaneous Approach (ICD-10-PCS; 2017-01-12)
DX: K70.31 Alcoholic cirrhosis of liver with ascites (principal); K76.7 Hepatorenal syndrome; K70.11 Alcoholic hepatitis with ascites; E46 Unspecified protein-calorie malnutrition; K72.00 Acute and subacute hepatic failure without coma; Z68.1 Body mass index [BMI] 19.9 or less, adult; K92.2 Gastrointestinal hemorrhage, unspecified; J44.9 Chronic obstructive pulmonary disease, unspecified; D64.9 Anemia, unspecified; B19.20 Unspecified viral hepatitis C without hepatic coma; R62.7 Adult failure to thrive; M19.90 Unspecified osteoarthritis, unspecified site; K21.9 Gastro-esophageal reflux disease without esophagitis; K29.70 Gastritis, unspecified, without bleeding; K27.9 Peptic ulcer, site unspecified, unspecified as acute or chronic, without hemorrhage or perforation; Z66 Do not resuscitate
CPT/HCPCS: G0328; J2060; P9016; P9047; S0164